=== PATIENT | female | born 1980 | race Caucasian/White ===

== ENCOUNTER 2017-01-16 09:09 | Outpatient (CLI) | payer OTHER ==
--- NOTE | 2017-01-16 09:31 | RAD ---
CHEST TWO VIEWS: History: 36-year-old female with wheezing. FINDINGS: Heart size is normal. The lungs are clear. IMPRESSION: No acute intrathoracic disease. POS: [id number]
== END 2017-01-16 09:10 | disposition home or self-care (01) ==
LOC: RAD-FRANK 09:09
PROVIDERS: ATTEND Nurse Practitioner Family
DX: R06.2 Wheezing (principal)
CPT/HCPCS: 71020